=== PATIENT | male | born 1965 | race Caucasian/White ===

== ENCOUNTER 2019-10-21 18:15 | Emergency (ER) | payer SELFPAY ==
[2019-10-21 18:30] VITALS: PULSE 82; RESP 17; TEMP 36.3; O2SAT 94; BMI 42.4
--- NOTE | 2019-10-21 18:34 | W.ED.UPPEXIN ---
HPI - Extremity Injury (Upper) General: Chief Complaint: Wound/Laceration Stated Complaint: finger injury Time Seen by Provider: 10/21/19 18:34 Source: patient Mode of arrival: ambulatory Limitations: no limitations History of Present Illness: HPI narrative: 53-year-old male comes in with injury to the right index finger. 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 Patient cannot recall his last tetanus. Patient denies any chronic medical problems. Patient appears well. Patient appears in moderate pain. Review of Systems General: Reports: 10 or more systems reviewed and unremarkable except in HPI and below Skin/Breast: Reports: other (laceration) PFSH ED PFSH: Social History Smoking and tobacco status: current some day smoker Physical Exam Const: COMMON NORMALS: no apparent distress and oriented x3 GENERAL APPEARANCE: cooperative HENMT: COMMON NORMALS: normocephalic, TM's normal bilaterally and external nose normal HEAD & SCALP: normal to inspection and normocephalic NOSE: external nose normal TYMPANIC MEMBRANE: TM's normal bilaterally MOUTH: oral and palatal mucosa normal THROAT: posterior oropharynx normal Eye: GENERAL EYE: normal appearance of both eyes Neck/C-Spine: COMMON NORMALS: full ROM Lymph: LYMPHATIC: no lymphadenopathy noted Chest: COMMONS NORMALS: inspection of chest normal Resp: COMMON NORMALS: normal respiratory effort EFFORT & INSPECTION: Yes able to speak in complete sentences Cardio: COMMON NORMALS: regular rate and regular rhythm RATE: regular rate RHYTHM: regular rhythm GI: COMMON NORMALS: non-tender : COMMON NORMALS: Yes no CVA tenderness BLADDER/KIDNEY EXAM: Yes no CVA tenderness Back/Pelvis: COMMON NORMALS: no CVA tenderness and thoracic and lumbar spine normal to inspection Extremity: COMMON NORMALS: normal to inspection Neuro: COMMON NORMALS: oriented x3 and moves all extremities Psych: COMMON NORMALS: mental status grossly normal and cooperative Skin: NARRATIVE SKIN EXAM: Laceration is noted to the distal radial side of the right index finger. Patient has damage to the radial side of the nail. Patient has normal range of motion of the finger without any significant tendon injury. No foreign bodies are noted. Capillary refill is noted distally. Procedures Laceration Laceration 1: Site: hand (index finger right hand) Side (If applicable): right Size (cm): 3 Description: irregular Depth: [id number] Local Anesthetic: lidocaine 1% Amount of anesthesia used (mL): 6 Pre-repair: wound explored and irrigated extensively Skin layer closed with: nylon Size (cm): 4-0 Number of sutures: 11 Technique: simple, interrupted Course Vital Signs: Vital signs: Vital Signs Temperature 97.3 F L 10/21/19 18:30 Pulse Rate 71 10/21/19 20:20 Respiratory Rate 18 10/21/19 20:20 Blood Pressure 142/84 10/21/19 20:20 Pulse Oximetry 95 10/21/19 20:20 MDM - Extremity Injury (Upper) MDM Narrative: Medical decision making narrative: Patient comes in with injury to the right index finger. Exam notes a through and through avulsion/laceration to the radial side of the distal index finger. Vital signs are normal. Differential diagnosis includes laceration, tendon injury, fracture of the bone, foreign body. Exam noted no foreign body or tendon injury. X-ray noted some involvement to the radial side of the distal phalanx of the right index finger. Wound was repaired with sutures to close and protect the nailbed and laceration. Patient was placed on antibiotics due to the bony involvement from the injury. Patient was started on medication for pain and tetanus was updated. Reviewed exam with patient recommended dry clean dressing and splint to the hand and finger. Recommend sutures out in 7 to 10 days. Patient reports understanding agreed to plan. Discharge Plan Discharge Patient Disposition: Home, Self-Care Clinical Impression: Finger laceration Qualifiers: Encounter type: initial encounter Finger: little finger Damage to nail status: with damage Foreign body presence: without foreign body Laterality: right Qualified Code(s): S61.316A - Laceration without foreign body of right little finger with damage to nail, initial encounter Condition: Stable Prescriptions: New hydrocodone-acetaminophen 5-325 mg tablet 1 tab PO Q6H PRN (Reason: pain (scale score 7-10)) Qty: 10 RF: 0 cephalexin 500 mg capsule 500 mg PO BID 10 Days Qty: 20 RF: 0 Discharge Orders: Discharge Order (Routine); Ordered 10/21/19 Ordered By: Payam Hall Discharge Diet: Usual diet Discharge Activity: Increase activity as tolerated Patient Instructions: Finger Laceration (ED) Activity Restrictions/Additional Instructions: keep wound clean and dry wear finger splint for protection Acetaminophen and ibuprofen for pain control sutures out in 10 days Increase activity as tolerated Follow-up with primary care in one week Return to ER for uncontrolled pain or high fever Discharge Date/Time: 10/21/19 20:21 Coding Level of Care Code ED 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
--- NOTE | 2019-10-21 18:37 | XR_ITS ---
WS: [id number] HAND RIGHT TECHNIQUE: 3 views of the right hand CLINICAL INFORMATION: injury COMPARISON: None. FINDINGS: Soft tissue injury fifth digit. Slightly comminuted fragmentation involving the fifth distal phalanx with multiple tiny fracture fragments. XR/XR hand RT min 3V* [id number] IMPRESSION: Soft tissue injury fifth digit with comminuted fracture fragments along the lat eral distal phalanx
[2019-10-21] MEDS: lidocaine 1% INJ 20 mL 10 ML SUBCUT (18:46)
[2019-10-21] MEDS: tetanus-dipt-pertussis 0.5 mL SDV IM (18:47)
[2019-10-21] MEDS: cephALEXin 500 mg Capsule PO (18:47)
[2019-10-21] MEDS: HYDROcodone-acetaminophen 7.5-325 mg Tablet 1 TAB PO (20:02)
[2019-10-21 20:20] VITALS: BP 142/84; PULSE 71; RESP 18; O2SAT 95
== END 2019-10-21 20:21 | disposition home or self-care (01) ==
PROVIDERS: Emergency Provider Nurse Practitioner Family
DX: S61.210A Laceration without foreign body of right index finger without damage to nail, initial encounter (principal); W31.1XXA Contact with metalworking machines, initial encounter; Y99.0 Civilian activity done for income or pay; F17.200 Nicotine dependence, unspecified, uncomplicated; Z23 Encounter for immunization
CPT/HCPCS: 12002; 12345; 73130; 90471; 90715; 99281; 99283; A6446; J2001